=== PATIENT | female | born 1980 | race American Indian/Alaskan Native ===

== ENCOUNTER 2019-04-12 14:44 | Outpatient (CLI) | payer OTHER | END 2019-04-13 12:50 | disposition home or self-care (01) | LOC: OBS/DEL 14:44 | DX: O26.843 Uterine size-date discrepancy, third trimester (principal); O26.893 Other specified pregnancy related conditions, third trimester; R10.2 Pelvic and perineal pain; R07.89 Other chest pain; O36.8191 Decreased fetal movements, unspecified trimester, fetus 1; O12.03 Gestational edema, third trimester ==

== ENCOUNTER 2019-05-03 08:30 | Inpatient (IN) | payer OTHER ==
[~2019-05-03] VITALS: Ht 160 cm; Wt 2.7 kg
[2019-05-06] MEDS ORDERED: PRENATAL + DHA1 EAC1 PO (08:12)
== END 2019-05-08 13:42 | disposition home or self-care (01) | DRG 788 ==
LOC: SURG-SUITE 05-05 06:58 → LDR 05-05 06:58 → OB/GYN 05-05 08:30 → LDR 05-05 10:41 → OB/GYN 05-05 13:30 → SURG-SUITE 05-05 14:16
PROVIDERS: ADMIT Obstetrics & Gynecology
PROC: 4A1HXFZ Monitoring of Products of Conception, Cardiac Rhythm, External Approach (ICD-10-PCS; 2019-05-05)
PROC: 3E033VJ Introduction of Other Hormone into Peripheral Vein, Percutaneous Approach (ICD-10-PCS; 2019-05-05)
PROC: 4A033R1 Measurement of Arterial Saturation, Peripheral, Percutaneous Approach (ICD-10-PCS; 2019-05-05)
PROC: 10D00Z1 Extraction of Products of Conception, Low, Open Approach (ICD-10-PCS; principal; 2019-05-05 13:30)
DX: O65.4 Obstructed labor due to fetopelvic disproportion, unspecified (principal); O13.4 Gestational [pregnancy-induced] hypertension without significant proteinuria, complicating childbirth; Z3A.38 38 weeks gestation of pregnancy; Z37.0 Single live birth